=== PATIENT | female | born 1985 | race Caucasian/White ===

== ENCOUNTER 2018-02-04 16:04 | Emergency (ER) | payer OTHER ==
[2018-02-04] MEDS: morphine 4 MG/ML VIAL IM (20:14)
[2018-02-04] MEDS: KETOROLAC 60 MG INJ IM (22:00)
== END 2018-02-04 22:34 | disposition home or self-care (01) ==
LOC: FTE 16:04
DX: S93.402A Sprain of unspecified ligament of left ankle, initial encounter (principal); W01.0XXA Fall on same level from slipping, tripping and stumbling without subsequent striking against object, initial encounter; Y92.9 Unspecified place or not applicable
CPT/HCPCS: 73610; 96372; 99284-25